=== PATIENT | female | born 1935 | race Caucasian/White ===

== ENCOUNTER → 2016-11-02 | Outpatient (CLI) | payer MEDICARE, OTHER ==
[~2016-11-02] MED LIST: AZIT250T81 PO; BETH50TA PO; BUDE90AE2 IH; CELE200C PO; CLOP75TA3 PO; CLOT21CR7 VG; ESTR0.62; LSRT50T PO; LVT.1T PO; PRED20TA PO; QUIN324C3 PO; SPRN25T PO; TRM50T PO; VENL37.57 PO; ZOLE5INF IV
--- NOTE | 2016-11-02 08:52 | Diagnostic Imaging Report ---
INDICATION: Compression fracture. Back pain. TECHNIQUE: Multiple imaging planes and sequences through the thoracic spine are performed without intravenous contrast. Numbering of vertebra was done by counting from C2 to inferior. COMPARISON: 01/08/2014. FINDINGS: The thoracic spinal cord is within normal limits. No intradural lesion is seen. The conus terminates at L1-2. At the T7 level, a compression fracture is present. The most compressed anterior aspect of the vertebral body has a superior to inferior dimension of 11 mm and should be about 17 mm. The vertebral body has edema. This has features of a benign compression collapse. Some paravertebral edema is probably present. There is no posterior element involvement. There is minimal retropulsion of the posterior superior margin of the vertebra with no significant central or lateral stenosis. Compression has occurred since 01/08/2014. Mild degenerative disc disease is present. No other bone marrow lesions are identified. IMPRESSION: 1. Recent compression fracture of T7 vertebral body. Dictated by: Dictated on workstation # [id number]
== END ==
LOC: RAD 07:02
PROVIDERS: ATTEND Family Medicine
DX: M48.54XA Collapsed vertebra, not elsewhere classified, thoracic region, initial encounter for fracture (principal)
CPT/HCPCS: 72146

== ENCOUNTER 2016-11-11 16:34 | Emergency (ER) | payer OTHER, MEDICARE ==
[~2016-11-11] VITALS: Ht 167.6 cm; Wt 50.4 kg
[~2016-11-11 16:34] MED LIST changes: -CLOT21CR7 VG; -QUIN324C3 PO; -VENL37.57 PO
--- OUTSIDE RECORDS SUMMARY | 2016-11-11 16:40 | XMS REPORT ---
Author Author Jose Ramon Gallagher Organization Unknown Address [address], [place] [id number] Phone Care Team Providers Care Patient Office Rep Name Role Phone Natalie MORENO PP Unavailable Unavailable Reason for Referral No Reason for Referral was given. History of Present Illness No HPI available. Problems Axial Polyarticular Inflammation Last Assessed: 02/10/2013 11:10:57 AM (714.9); (Active) Osteoporosis Last Assessed: 02/11/2013 8:41:58 AM (733.00); (Active) Normal Routine History And Physical Senior Citizen (65-80) ( V70.0); (Active) Dizziness (780.4); (Active) Ataxia (781.3) ; (Active) Lower Back Pain (724.2); (Active) Xerosis Cutis ( 706.8); (Active) Tinnitus (388.30); (Active) Hypertension ( 401.9); (Active) Hypothyroidism (244.9); (Active) Taking High-risk Medication (V58.69); (Active) Raynaud's Disease (443.0); (Active) Medication Premarin 0.625 MG Oral Tablet; TAKE 1 TABLET EVERY OTHER DAY.; Start Date: 02/21 (Active)Synthroid 100 MCG Oral Tablet; TAKE 1 TABLET DAILY.; Start Date: 02/22/2008 (Active)Mag-Ox 400 400 MG TABS; Take 1 tablet daily; Start Date: (Active)Multiple Vitamin Oral Tablet; TAKE 1 TABLET DAILY.; Start Date: 02/22/2008 (Active)Bethanechol Chloride 50 MG Oral Tablet; TAKE 1 TABLET TWICE DAILY.; Start Date: 02/22/2008 (Active)Clopidogrel Bisulfate 75 MG Oral Tablet; Take 1 tablet daily; Start Date: 02/22/2008 (Active)Budesonide 0.25 MG/2ML Inhalation Suspension; USE 1 UNIT DOSE VIA NEBULIZER DAILY; Start Date: 2009 (Active)CeleBREX 200 MG Oral Capsule; TAKE 1 CAPSULE DAILY.; Start Date: (Active)Reclast 5 MG/100ML Intravenous Solution; USE DIRECTED.; Start Date: 03/09/2010 (Active)TraMADol HCl TABS; Start Date: 09/08/2011 (Active )Amcinonide 0.1 % External Cream; APPLY TWICE DAILY TO BACK; Start Date: 2011; End Date: (Active)Nystatin-Triamcinolone 477580-3.1 UNIT/GM-% External Cream; APPLY THIN LAYER TO CORNERS OF MOUTH NEEDED; Start Date: 07/2012; End Date: (Active)Voltaren 1 % Transdermal Gel; Apply 4 gr to affected area 4 x dly; Start Date: 11/27/2012 (Active)Calcium 600+D3 600-200 MG-UNIT Oral Tablet; TAKE 1 TABLET DAILY.; Start Date: 11/27/2012 (Active) Spironolactone 25 MG Oral Tablet; TAKE 1 tab every morning on Mon, Sun and Sun; Start Date: 03/09/2010 (Active)Cozaar 50 MG Oral Tablet; TAKE 1 TABLET DAILY.; Start Date: 09/08/2011 (Active) Allergies and Adverse Reactions Penicillins (Active)Aspirin CHEW (Active)Sulfa Drugs (Active)Metoclopramide HCl TABS (Active)Adhesive Tape (Active)Tape (Active)Percocet TABS (Active)Vicodin TABS (Active)Clindamycin (Active)Lisinopril-Hydrochlorothiazide TABS (Active) Past Medical History No Significant Medical History Family History Family history of Diabetes Mellitus (V18.0); (Active) Family history of Cancer (Active) Family history of Reported Family History Of Heart Disease (Active) Family history of Hypertension (V17.49); ( Active) Family history of Skin Cancer (V16.8); (Active) Social History No History of Tobacco Use (Active) Marital History - Currently (Active) No History of Alcohol Use (Active) Unknown If Ever Smoked (410048); (Active) Treatment Plan XC CTA NECK 03/14/2010 RoutineXC OPTIRAY 320 100ML 03/14/2010 Routine Advance Directives No Advance Directives available. Encounters Appointment 02/10/2013 [facility] , Provider: June Nunez, Status: Kobe , Time: 8:45 AM 03/14/2013 [facility] , Provider: Elliott Albright, Status: Kobe , Time: 10:00 AM 08/04/2013 [facility] , Provider: Jess Mcpherson, Status: Kobe , Time: 9:15 AM 09/03/2013 [facility] , Provider: Elliott Albright, Status: Kobe , Time: 10:00 AM 02/11/2014
[2016-11-11] MEDS ORDERED: LIDOCAINE 2% (XYLOCAINE) 20 ML VIAL INJ ONE (17:00)
[2016-11-11] MEDS ORDERED: TETANUS, DIPTHERIA, PERTUSSIS (ADACELL) VACCINE 0.5 ML VIAL IM ONE (17:00)
[2016-11-11] MEDS ORDERED: BACITRACIN OINTMENT 0.9 GM PACKET TOP ONE ×3 (17:17→19:05)
[2016-11-11 18:54] VITALS: BP 116/57
[2016-12-02] MEDS ORDERED: CLOT21CR7 VG (11:48)
[2016-12-02] MEDS ORDERED: VENL37.57 PO (14:10)
[2016-12-02] MEDS ORDERED: ZOLE5INF IV (14:10)
[2016-12-02] MEDS ORDERED: QUIN324C3 PO (14:10)
== END 2016-11-11 17:40 | disposition home or self-care (01) ==
LOC: ED 16:40
DX: S81.812A Laceration without foreign body, left lower leg, initial encounter (principal); V48.4XXA Person boarding or alighting a car injured in noncollision transport accident, initial encounter; Y92.410 Unspecified street and highway as the place of occurrence of the external cause
CPT/HCPCS: 12002; 90471; 90715; 99283; J2001; 99282

== ENCOUNTER → 2016-11-23 | Outpatient (CLI) | payer OTHER, MEDICARE ==
[~2016-11-23] VITALS: Ht 167.6 cm; Wt 59.0 kg
[2016-11-23 18:31] VITALS: BP 110/54
--- NOTE | 2016-11-23 18:44 | NUR ---
AFTER SUTURE REMOVAL AND SITE CLEANSED, AGAIN, WITH CHLORHEXADINE SWAB, SITE COVERED WITH STERILE TELFA AND COBAN. PATIENT TOLERATED WELL.
== END ==
LOC: EUOP 18:21
PROVIDERS: ATTEND Emergency Medicine
DX: S81.812D Laceration without foreign body, left lower leg, subsequent encounter (principal); V48.4XXD Person boarding or alighting a car injured in noncollision transport accident, subsequent encounter

== ENCOUNTER → 2016-12-02 | Outpatient (CLI) | payer MEDICARE, OTHER ==
[2016-12-02 15:13] VITALS: BP 122/68
== END ==
LOC: MHUC 10:48
PROVIDERS: ATTEND Physician Assistant Medical
DX: N76.0 Acute vaginitis (principal); S81.811S Laceration without foreign body, right lower leg, sequela; W20.8XXS Other cause of strike by thrown, projected or falling object, sequela
CPT/HCPCS: 99213

== ENCOUNTER → 2017-01-17 | Outpatient (CLI) | payer MEDICARE, OTHER ==
[2017-01-17 12:21] VITALS: BP 112/59
== END ==
LOC: MHUC 12:00
PROVIDERS: ATTEND Physician Assistant
DX: J30.1 Allergic rhinitis due to pollen (principal)
CPT/HCPCS: 99213